=== PATIENT | female | born 1960 | race Caucasian/White ===

== ENCOUNTER 2020-10-11 21:41 | Emergency (ER) | payer BC, MEDICAID | END 2020-10-11 23:07 | disposition left against medical advice (07) | LOC: LB.ED 21:41 | DX: U07.1 COVID-19 (principal) | CPT/HCPCS: 99281; U0002 ==

== ENCOUNTER 2020-10-12 21:13 | Emergency (ER) | payer BC, MEDICAID ==
[2020-10-12] MEDS ORDERED: Albuterol/Ipratropium 3.0-0.5 MG/3 ML Neb Soln NEB PRN (21:31)
--- NOTE | 2020-10-12 22:52 | EDM.PDOC ---
ED HPI GENERAL MEDICAL PROBLEM - General Chief Complaint: Respiratory Problem Stated Complaint: SOB Time Seen by Provider: 10/12/20 22:05 Source of Information: Reports: Patient History Limitations: Reports: No Limitations - History of Present Illness INITIAL COMMENTS - FREE TEXT/NARRATIVE: patient with a recent diagnosis of COVID - ( yesterday ) who presented to the ER due to a c/o cough and fatigue. reports chills, loss of appetite and loose stool for 3-4 days. no CP. h/o HTN, obesity BMI 40 and depression Onset: Gradual Duration: Day(s): (4) - Related Data Allergies Allergy/AdvReac Type Severity Reaction Status Date / Time No Known Allergies Allergy Verified 10/12/20 21:54 Home Meds: Home Meds Metoprolol Succinate 100 mg PO DAILY 10/12/20 [History] atorvaSTATin [Lipitor] 20 mg PO DAILY 10/12/20 [History] buPROPion [Wellbutrin SR] 150 mg PO DAILY 10/12/20 [History] lisinopriL [Lisinopril] 20 mg PO DAILY 10/12/20 [History] Past Medical History Cardiovascular History: Reports: Hypertension Social & Family History - Family History Family Medical History: No Pertinent Family History - Tobacco Use Tobacco Use Status *Q: Never Tobacco User - Caffeine Use Caffeine Use: Reports: Coffee - Recreational Drug Use Recreational Drug Use: No ED ROS GENERAL - Review of Systems Review Of Systems: See Below Constitutional: Reports: Chills, Malaise, Fatigue, Decreased Appetite HEENT: Reports: No Symptoms Respiratory: Reports: Wheezing, Cough, Sputum Cardiovascular: Reports: No Symptoms GI/Abdominal: Reports: Diarrhea Musculoskeletal: Reports: No Symptoms Skin: Reports: No Symptoms Neurological: Reports: No Symptoms Psychiatric: Reports: Depression ED EXAM, GENERAL - Physical Exam Exam: See Below Exam Limited By: No Limitations General Appearance: Alert, WD/WN, No Apparent Distress Eye Exam: Bilateral Eye: EOMI Respiratory/Chest: No Respiratory Distress, Normal Breath Sounds, No Accessory Muscle Use Cardiovascular: Normal Peripheral Pulses, Tachycardia GI/Abdominal: Normal Bowel Sounds Extremities: Normal Inspection Neurological: Alert, Oriented, No Motor/Sensory Deficits Psychiatric: Normal Affect Course - Vital Signs Last Recorded V/S: Last Vital Signs Temp 38.0 C 10/12/20 22:07 Pulse 107 H 10/12/20 22:07 Resp 18 10/12/20 22:07 BP 113/55 L 10/12/20 22:07 Pulse Ox 94 L 10/12/20 22:07 - Orders/Labs/Meds Orders: Active Orders 24 hr Category Date Time Status RT Aerosol Therapy [RC] ASDIRECTED Care 10/12/20 21:32 Active Albuterol/Ipratropium [DuoNeb 3.0-0.5 MG/3 ML] Med 10/12/20 21:31 Active 3 ml NEB Q2H PRN Medication Orders Albuterol/Ipratropium (Albuterol/Ipratropium 3.0-0.5 Mg/3 Ml Neb Soln) 3 ml NEB Q2H PRN PRN Reason: Shortness of Breath Last Admin: 10/12/20 21:44 Dose: 3 ml Documented by: LAZARO Harps: Medications Generic Name Dose Route Start Last Admin Trade Name Freq PRN Reason Stop Dose Admin Albuterol/Ipratropium 3 ml 10/12/20 21:31 10/12/20 21:44 Albuterol/Ipratropium 3.0-0.5 Mg/3 Ml Neb Soln NEB 3 ml Q2H PRN Administration Shortness of Breath - Re-Assessments/Exams Free Text/Narrative Re-Assessment/Exam: 94% on RA, HR 110. reports improvement in breathing after neb treatment discussed with patient other treatment options given she is a high risk BMI>35 - she agreed to receive Regen-COV2 mono clonal Abx IV. Departure - Departure Time of Disposition: 23:20 Disposition: Home, Self-Care 01 Condition: Good Clinical Impression: COVID-19 virus infection, Upper respiratory tract infection due to COVID-19 virus - Discharge Information *PRESCRIPTION DRUG MONITORING PROGRAM REVIEWED*: Not Applicable *COPY OF PRESCRIPTION DRUG MONITORING REPORT IN PATIENT KIM: Not Applicable Instructions: 10 Things You Can Do to Manage Your COVID-19 Symptoms at Home - CDC (08/22/2019), COVID-19: What to Do if You Are Sick - [facility] (02/21/2020) Referrals: PCP,None [Primary Care Provider] - Forms: ED Department Discharge Additional Instructions: Discharge home. Inhaler, increase vitamin C and Fluids. Sepsis Event Note (ED) - Evaluation Sepsis Screening Result: Possible Sepsis Risk - Focused Exam Vital Signs: Vital Signs Temp Pulse Resp BP Pulse Ox 10/12/20 22:07 38.0 C 107 H 18 113/55 L 94 L 10/12/20 21:41 38.0 C 107 H 18 113/55 L 94 L 10/12/20 21:30 38.0 C 107 H 18 113/55 L 94 L - Problem List & Annotations (1) COVID-19 virus infection SNOMED Code(s): 692578078 Code(s): U07.1 - COVID-19 Status: Acute Priority: Low Current Visit: Yes (2) Upper respiratory tract infection due to COVID-19 virus SNOMED Code(s): 7403504615014066 Code(s): U07.1 - COVID-19; J06.9 - ACUTE UPPER RESPIRATORY INFECTION, UNSPECIFIED Status: Acute Priority: Low Current Visit: Yes - Problem List Review Problem List Initiated/Reviewed/Updated: Yes - My Orders Last 24 Hours: My Active Orders 10/12/20 21:31 Albuterol/Ipratropium [DuoNeb 3.0-0.5 MG/3 ML] 3 ml NEB Q2H PRN 10/12/20 21:32 RT Aerosol Therapy [RC] ASDIRECTED - Assessment/Plan Last 24 Hours: My Active Orders 10/12/20 21:31 Albuterol/Ipratropium [DuoNeb 3.0-0.5 MG/3 ML] 3 ml NEB Q2H PRN 10/12/20 21:32 RT Aerosol Therapy [RC] ASDIRECTED Plan: - Regen COV IV - Increase fluids intake - start using inhaler as prescribed - Vitamin C, D and zinc supplements over the counted - Tylenol for fever as needed - recommend isolation from closed/indoor public spaces for 2 weeks - return to the ER if symptoms got worse or any concerns
== END 2020-10-12 23:35 | disposition home or self-care (01) ==
LOC: LB.ED 21:13
DX: U07.1 COVID-19 (principal); J06.9 Acute upper respiratory infection, unspecified; I10 Essential (primary) hypertension; E66.9 Obesity, unspecified; Z68.41 Body mass index [BMI] 40.0-44.9, adult; Z79.899 Other long term (current) drug therapy
CPT/HCPCS: 99284; M0243; Q0243; J7620-GY